=== PATIENT | male | born 1995 | race Caucasian/White ===

== ENCOUNTER → 2016-03-22 | Outpatient (CLI) | payer BC ==
[~2016-03-22] MED LIST: AMBIEN 5MG TABLE5 MG PO; BELSOMRA; CIPRO 500MG TA500 MG PO; EFFEXOR100 MG; FLOMAX 0.40.4 MG/CAP PO; LAMICTAL200 MG PO; NORCO 325 MG-51 TAB PO; WELLBUTRIN 100100 MG; ZOFRAN 4MG T4 MG/TAB PO; ZYPREXA 5MG5 MG PO
== END ==
LOC: BHSO 14:47
DX: F31.81 Bipolar II disorder (principal)

== ENCOUNTER → 2016-05-01 | Outpatient (CLI) | payer BC | LOC: BHSO 12:40 | DX: F31.32 Bipolar disorder, current episode depressed, moderate (principal) ==